=== PATIENT | female | born 1945 | race Caucasian/White ===

== ENCOUNTER → 2019-12-15 | Outpatient (CLI) | payer MEDICARE, BC ==
[2014-06-08 15:00] VITALS: BP 138/72
[~2019-12-15] MED LIST: ANAS1TAB PO; FLEC100T PO; GABA-585 PO; LEVO150T5 PO; LOSA100T14 PO; METO1TAB6 PO; PRAV40TA2 PO; RIVA20TA2 PO
--- NOTE | 2019-12-15 12:38 | RAD ---
EXAM: Dual energy x-ray absorptiometry (DEXA). HISTORY: Postmenopausal female presents for osteoporosis screening. COMPARISON: None. TECHNIQUE: Dual energy x-ray absorptiometry of the lumbar spine and right hip was performed. Calculation of bone mineral density based on standard deviations above or below the expected young adult normal value (T-score) was completed. FINDINGS: The average bone mineral density in the 1st through 4th lumbar vertebrae is 1.385 g/cmxcm, corresponding with a T-score of 1.7. The average total bone mineral density in the right hip is 1.000 g/cmxcm, corresponding with a T-score of 0.4. IMPRESSION: Normal bone mineral density. Note: Definitions established by the [employer]: 1. Normal: T-score is -1.0 or above. 2. Osteopenia: T-score is between -1.0 and -2.5 . 3. Osteoporosis: T-score is -2.5 or below. Electronically signed by: Barbara Kay MD (12/15/2019 12:36 PM) [id number]
== END ==
LOC: DXRAD 10:54
PROVIDERS: ATTEND Physician Assistant Medical
DX: Z00.00 Encounter for general adult medical examination without abnormal findings (principal); M19.90 Unspecified osteoarthritis, unspecified site; Z78.0 Asymptomatic menopausal state
CPT/HCPCS: 77080